=== PATIENT | female | born 1995 | race Asian ===

== ENCOUNTER → 2018-01-29 | Outpatient (CLI) | payer OTHER | LOC: COL.RAD 14:52 | DX: E28.2 Polycystic ovarian syndrome (principal); Z87.42 Personal history of other diseases of the female genital tract ==

== ENCOUNTER → 2018-06-17 | Outpatient (CLI) | payer OTHER | LOC: COL.RAD 15:06 | DX: R10.31 Right lower quadrant pain (principal) | CPT/HCPCS: Q9967 ==